=== PATIENT | male | born 2000 | race Caucasian/White ===

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

== ENCOUNTER 2019-05-06 04:10 | Emergency (ER) | payer MEDICAID ==
[~2019-05-06] VITALS: Ht 180.3 cm; Wt 77.0 kg
[2019-05-06 06:14] LABS: BASOPHILS % 0.2 % (0.0-2.0); EOSINOPHILS % 1.4 % (0.0-5.0); HEMATOCRIT. 45.1 % (42.0-52.0); HEMOGLOBIN. 16.2 g/dL (14.0-18.0); LYMPHOCYTES % 23.6 % (20.0-50.0); MEAN CORPUSCULAR HEMOGLOBIN 30.7 pg (28.0-32.0); MEAN CORPUSCULAR VOLUME 85.5 fL (80.0-94.0); MEAN PLATELET VOLUME 7.8 fl (7.4-10.4); MONOCYTES % 6.3 % (2.0-8.0); NEUTROPHILS % 68.5 % (40.0-76.0); PLATELET 244 x1000/uL (130-400); RED BLOOD CELL COUNT 5.27 mill/uL (4.7-6.1); RED CELL DISTRIBUTION WIDTH 12.8 % (11.6-14.6)
[2019-05-06 06:20] LABS: CHLORIDE 104 mEq/L (98-107)
[2019-05-06 06:24] LABS: ETHANOL BLOOD < 10 mg/dL
[2019-05-06 06:59] LABS: CLARITY URINE CLEAR (CLEAR); COLOR URINE YELLOW (YELLOW); KETONES URINE NEGATIVE (NEGATIVE); LEUKOCYTE ESTERASE URINE NEGATIVE (NEGATIVE); NITRITE URINE NEGATIVE (NEGATIVE); OCCULT BLOOD URINE NEGATIVE (NEGATIVE); PH URINE 5.5 (4.5-8.0); PROTEIN URINE NEGATIVE (NEGATIVE); SPECIFIC GRAVITY URINE 1.016 (1.005-1.030); UROBILINOGEN URINE 0.2 E.U./dL (0.2-1.0)
[2019-05-06 07:13] LABS: *AMPHETAMINES SCREEN URINE NEGATIVE (NEGATIVE); *BARBITURATES SCREEN URINE NEGATIVE (NEGATIVE)
[2019-05-06 07:15] LABS: *BENZODIAZEPINES SCREEN URINE NEGATIVE (NEGATIVE); *COCAINE SCREEN URINE NEGATIVE (NEGATIVE); CANNABINOID URINE SCREEN NEGATIVE (NEGATIVE); METHADONE URINE SCREEN NEGATIVE (NEGATIVE); OPIATES URINE SCREEN NEGATIVE (NEGATIVE); PHENCYCLIDINE URINE SCREEN NEGATIVE (NEGATIVE)
[2019-05-07] MEDS ORDERED: [UNRECOGNIZED DRUG - CODE] PO (09:46)
[2019-05-07] MEDS ORDERED: FLUV50TA3 PO (09:46)
[2019-05-07] MEDS ORDERED: FLUV25TA2 PO (09:46)
[2019-05-07] MEDS ORDERED: MULT-1146 PO (09:47)
[2019-05-09] MEDS: OLANZAPINE 10MG TABLET PO SCH (23:00)
[2019-05-10] MEDS: OLANZAPINE 10MG TABLET PO SCH (09:00)
[2019-05-11] MEDS: OLANZAPINE 10MG TABLET PO SCH (09:00)
[2019-05-12] MEDS: OLANZAPINE 10MG TABLET PO SCH (09:00)
[2019-05-12 11:14] VITALS: BP 112/67
== END 2019-05-12 11:39 | disposition home or self-care (01) ==
LOC: ER 04:10
DX: F84.0 Autistic disorder (principal); R45.1 Restlessness and agitation; R45.850 Homicidal ideations; R45.851 Suicidal ideations; F17.200 Nicotine dependence, unspecified, uncomplicated
CPT/HCPCS: 36415; 80053; 80305; 80307; 80320; 80329; 81003; 85025; 99284; G0480